=== PATIENT | male | born 1980 | race Caucasian/White ===

== ENCOUNTER 2022-03-16 13:04 | Emergency (ER) | payer OTHER ==
[2022-03-16 13:55] LABS: BASOPHIL 0.9 % (0-2); EOSINOPHIL 1.9 % (0-5); HGB 16.5 g/dl (13.2-18.0); LYMPHOCYTE 35.6 % (15-48); MCH 29.5 pg (25.0-31.0); MCHC 33.7 g/dL (32.0-36.0); MCV 87.7 fL (78.0-100.0); MONOCYTE 11.4 % (0-12); MPV 11.4 fL (6.0-9.5); NEUTROPHIL 49.9 % (41-80); NRBC 0; PLT 198 K/uL (150-400); RBC 5.59 M/uL (4.70-6.00); RDW 11.9 % (11.5-14.0); WBC 6.4 K/uL (4.0-10.5)
[2022-03-16 14:22] LABS: BUN/CREAT RATIO (CALC) 12.8 RATIO; CREATININE 1.41 mg/dL (0.67-1.17); POTASSIUM 4.3 mmol/L (3.5-5.1)
[2022-03-16] MEDS ORDERED: FLOMAX 0.4 MG0.4 MG PO (17:15)
[2022-03-16] MEDS ORDERED: NORCO 5-325 TA1 EACH PO (17:15)
[2022-03-16] MEDS ORDERED: ONDANSETRON HCL4 MG PO (17:15)
[2022-03-16 17:24] LABS: BILIRUBIN NEGATIVE (NEGATIVE); BLOOD 3+ Ery/uL (NEGATIVE); CLARITY CLEAR (CLEAR); COLOR YELLOW (YELLOW); GLUCOSE (U) NORMAL (NORMAL); LEUKOCYTES NEGATIVE Leu/uL (NEGATIVE); NITRITE NEGATIVE (NEGATIVE); PROTEIN TRACE (LOW) mg/dL (NEGATIVE); SPECIFIC GRAVITY >=1.030 (1.001-1.030); UROBILINOGEN 0.2 mg/dL (0.2-1.0)
[2022-03-16 17:38] LABS: AMORPHOUS URATES CRYSTALS MODERATE; BACTERIA 4+; MUCOUS MODERATE; URINARY RBC 20-50
[2022-03-16] MEDS ORDERED: BACTRIM DS TAB1 EACH PO (17:47)
== END 2022-03-16 18:08 | disposition home or self-care (01) ==
LOC: FER 13:04
PROVIDERS: Nurse Practitioner Family
DX: N13.6 Pyonephrosis (principal); R11.2 Nausea with vomiting, unspecified; I10 Essential (primary) hypertension
CPT/HCPCS: 36415; 80048; 81001; 85025; 87088; J1170; J1885; J2405; J2550; J7030